=== PATIENT | male | born 1950 | race Caucasian/White ===

== ENCOUNTER 2024-07-22 00:07 | Day surgery (SDC) | payer OTHER, SELFPAY ==
--- NOTE | 2024-07-05 15:22 | PC.NURSE ---
Report to the Outpatient Waiting Room, entrance under the green pavilion located off [facility], at time __9am on date _07/22/24 . Planned Procedure Time: _11 am .? Time changes happen often and if your time is changed the preop area will call you the afternoon before. - You and your visitor will be asked to self-screen and do not enter if you have any COVID symptoms. Please call surgeon if you need to reschedule. - A mask is optional within the hospital at this time. Patients may have clear liquids (water, carbonated beverages, clear teas, apple juice) until 3 hours prior to surgery(8am) with a maximum of 20 ounces. - No food from midnight until time of surgery and no smoking. This includes no chewing gum, candy or mints. - Take only the following medications with a SIP of water on the morning of surgery: _AMLODIPINE,METOPROLOL, DO NOT STOP ANY OF YOUR OTHER PRESCRIPTION MEDICATIONS PRIOR TO SURGERY EXCEPT THE FOLLOWING Medications to discontinue per physician _HOLD _XARELTO 5 DAYS PRE OP PER DR DOE__LAST DOSE 07/16/24 Please no make-up, nail icelandic, hairspray, perfume, deodorant, or body powder the day of surgery.? No jewelry (including any body piercings) or valuables the day of surgery, leave them at home.? Please take a shower or bath the night before, or the morning of, surgery with an antibacterial soap.? Wear comfortable, loose fitting clothing.? Children are encouraged to wear pajamas. - Jewelry must be removed prior to entering the operating room.? Rings and piercings that are not removed may be cut off. - The hospital will not accept responsibility for valuables.? - Please leave all valuables, including medications, at home the day of surgery. If you are going home after surgery, a licensed refuse driver must drive you home.? - NO public transportation without another adult if you receive anesthesia. - We recommend that an adult stay with you for 24 hours following discharge. - We also recommend that you do not drive, make important decision, drink alcoholic beverages, or take any drugs that were not prescribed by your health care provider for at least 24 hours after your discharge time. For Pediatric surgeries, we recommend two adults accompany the child home. F Telephone instructions given to __patient and asked if any additional questions and then verbalized understanding. Patient advised to call surgeon office or pre surgery nurse liaison [phone] if any additional questions.
[2024-07-05 15:50] VITALS: BMI 27.7
--- NOTE | 2024-07-18 07:23 | PM.IMHP ---
H&P: HPI History of Present Illness Date/Time: 07/18/24 07:23 Chief Complaint: Patient is trigger finger left 4th finger. He has catching locking and pain in the A1 brain of the 4th finiger. He has had other trigger fingers released and has done well from those. Review of Systems Musculoskeletal: Musculoskeletal: Reports arthralgias, Reports joint swelling and Reports stiffness PMFSH Past Medical History Medical History History of trigger finger History of esophageal cancer surgery of removal Mild acid reflux Afib Hypertension Surgical History Surgical History History of carpal tunnel surgery of right wrist History of hand surgery trigger finger x2 History of hernia repair History of elbow surgery Social History Social History Smoking packs per day: 0.5 Smoking cigarettes per day: 10.0 Years smoked: 7 Smoking pack-years: 3.50 Smoking status: Former smoker Tobacco type: cigarettes Smoking end date: 07/24/78 Additional smoking assessment comments: quit 40yrs ago Alcohol intake: current Drinks per week: 10 Alcohol use details: BEER Substance use type: does not use Do You Feel Safe in your Home?: Yes Lack of Transportation: No Lack of Food: Never True Current Housing: I Have Housing Concerned About Future Housing: No Difficulty Paying Gas/Electric Bills: No Difficulty Paying for Meds: No Currently Unemployed: No Education: High School Diploma/GED Difficulty w/ Childcare or Family Care: No Living arrangements: with family Occupation/Education: retired Gender identity (if verbalized by the patient): Male Spiritual care concerns: No Meds Home Medications and Allergies Home Medications ?Medication ?Instructions ?Recorded ?Confirmed ?Type amlodipine 5 mg tablet 5 mg PO DAILY 11/21/23 07/05/24 History losartan 100 mg tablet 100 mg PO DAILY 11/21/23 07/05/24 History metoprolol tartrate 25 mg tablet 25 mg PO BID 11/21/23 07/05/24 History pantoprazole 40 mg tablet,delayed 40 mg PO QAM 11/21/23 07/05/24 History release rivaroxaban 20 mg tablet (Xarelto) 20 mg PO DAILY 11/21/23 07/05/24 History rosuvastatin 40 mg tablet 40 mg PO DAILY 11/21/23 07/05/24 History Allergies Allergy/AdvReac Type Severity Reaction Status Date / Time No Known Allergies Allergy Verified 07/05/24 15:26 Exam Narrative: On exam he has got catching was 4th finger on the left. He has pain to palpation manipulation. Neurologically he is grossly intact. There is a palpable bump or mass in the area. Radiology Reports: Comments: Patient: Lance Guillen 07/02/24 07:13 XR hand LT min 3V Routine Interpretation: AP lateral oblique view of the left hand demonstrates mild degenerative change particularly the 1st CMC joint otherwise unremarkable. This report may have been done utilizing a voice recognition system. Attempts have been made to correct errors. However, there may be uncorrected grammatical, spelling, and recognition errors present. Documented By: Jose Sethi MD 07/02/24 1038 Signed By: Hand X-Ray 07/02/24 Orthopedics Result Report 07/02/24 Assessment and Plan Assessment and plan (1) Trigger finger, left ring finger: Code(s): M65.342 - Trigger finger, left ring finger Status: Acute Assessment and Plan: Patient is trigger finger left 4th. He has been unresponsive to conservative treatment. Like to consider surgical release. He has had other trigger fingers released is done well from them. Will proceed per his request. I have discussed risks, benefits, limitations, and alternatives in detail with the patient. He would like to proceed.
--- NOTE | 2024-07-22 07:02 | WPDHPUPDATE1 ---
History and Physical Update Update Date/Time: 07/22/24 07:02 History and Physical has been reviewed, including an updated exam of the patient. There are NO changes in the patient's condition. Risks, benefits, and alternatives have been discussed and questions answered. Patient agrees to proceed with procedure.
--- NOTE | 2024-07-22 07:38 | P.PNAN_ITS ---
Anes - Initial Pre Proc Eval Procedure: Operation Date: 07/22/24 11:00 Proposed Procedures p Left Fourth Trigger Finger Release - Jose Sethi MD Date/Time: 07/22/24 07:38 Surgeon: Jose Sethi MD Pre Op Diagnosis: Left Fourth Trigger Finger Patient Data Age: 74 Gender: M Height: 1.85 m Weight: 95.3 kg Allergies Allergy/AdvReac Type Severity Reaction Status Date / Time No Known Allergies Allergy Verified 07/05/24 15:26 Home Medications ?Medication ?Instructions ?Recorded ?Confirmed ?Type amlodipine 5 mg tablet 5 mg PO DAILY 11/21/23 07/05/24 History losartan 100 mg tablet 100 mg PO DAILY 11/21/23 07/05/24 History metoprolol tartrate 25 mg tablet 25 mg PO BID 11/21/23 07/05/24 History pantoprazole 40 mg tablet,delayed 40 mg PO QAM 11/21/23 07/05/24 History release rivaroxaban 20 mg tablet (Xarelto) 20 mg PO DAILY 11/21/23 07/05/24 History rosuvastatin 40 mg tablet 40 mg PO DAILY 11/21/23 07/05/24 History Patient hx anesthesia problems: none Family hx anesthesia problems: none Results Review: All pre-operative results and documents have been reviewed as part of the pre- operative evaluation. [facility] Past Medical History Medical History (Updated 07/22/24 @ 07:39 by Zay Sutton DO) Hyperlipidemia History of trigger finger History of esophageal cancer surgery of removal Mild acid reflux Afib Hypertension Surgical History Surgical History History of carpal tunnel surgery of right wrist History of hand surgery trigger finger x2 History of hernia repair History of elbow surgery Social History Social History Smoking status: Former smoker Additional smoking assessment comments: quit 40yrs ago Alcohol intake: current Drinks per week: 14 Substance use type: does not use Do You Feel Safe in your Home?: Yes Lack of Transportation: No Lack of Food: Never True Current Housing: I Have Housing Concerned About Future Housing: No Difficulty Paying Gas/Electric Bills: No Difficulty Paying for Meds: No Currently Unemployed: No Education: High School Diploma/GED Difficulty w/ Childcare or Family Care: No Living arrangements: with family Occupation/Education: retired Gender identity (if verbalized by the patient): Male Anes - Eval Final PreProcedure Day of Procedure 07/22/24 07:38 Patient weight: overweight Heart: regular rate and rhythm Lungs: clear to auscultation Airway: Mallampati scale class II Neurological: alert and oriented Last oral intake: >/= 8 hours ASA classification: III Emergent: no Anesthetic plan: proceed Anesthesia type and monitoring: general GIVS and standard monitoring Results Review: All pre-operative results and documents have been reviewed as part of the pre-o perative evaluation. Informed Consent: The patient's anesthetic plan and its attendant risks and benefits were discussed with the patient/family/POA. Questions were solicited and answers provided to the satisfaction of the patient/family/POA.
[2024-07-22] MEDS: LACTATED RINGERS 1,000 ML 30 ML IV CONT (07:45)
[2024-07-22] MEDS: KETOROLAC 15 MG/ML VIAL (*BKC) IV PUSH (07:50)
[2024-07-22] MEDS: ACETAMINOPHEN 500 MG TABLET 1000 MG PO (07:50)
[2024-07-22] MEDS: ceFAZolin 2 GM/D5W 50 ML 2 GM/50 ML BAG IVPB (08:15)
[2024-07-22 08:28] VITALS: BP 131/64; PULSE 55; RESP 16; TEMP 36.2; O2SAT 99
[2024-07-22] MEDS: LIDOCAINE 1% LOCAL INJ 10 ML VIAL INFILTRATE (08:29)
--- NOTE | 2024-07-22 08:35 | W.PM.PROC2 ---
Procedure Note - Detailed Date of Procedure 07/22/24 Pre-op Diagnosis Left Fourth Trigger Finger Post-op Diagnosis Same Procedure Performed Release A1 Brain Surgeon Jose Sethi MD Anesthesia General Indications Pain and Catching Description of Procedure Patient brought to operating room 8. A general anesthetic was administered. He was sterilely prepped and draped in usual manner. Local infiltrate placed along the line of intended incision line with the distal thenar crease. Palmar crease. Dissection carried down through the skin. The neurovascular bundles were protected and dissection continued bluntly to the A1 brain. This was released under direct vision. The tendon had full excursion without catching or locking at this time. The wound irrigated, hemostasis obtained, and closed with 3-0 Prolene. Sterile dressing applied. Patient left the operating room satisfactory condition Estimated Blood Loss 1 Complications No immediate complications Condition Stable Disposition PACU [facility] Billing Surgery - Charge Forward: Surgery Billing ([id number] Trigger Finger Release)
[2024-07-22 08:44] VITALS: BP 96/52; PULSE 61; RESP 16; O2SAT 99
[2024-07-22 09:00] VITALS: BP 115/60; PULSE 68
[2024-07-22 09:15] VITALS: BP 105/50; PULSE 59; RESP 16
[2024-07-22 09:45] VITALS: BP 105/59; PULSE 59; RESP 15
== END 2024-07-22 10:09 | disposition home or self-care (01) ==
PROVIDERS: PCP Family Medicine; Visit Provider Orthopaedic Surgery
PROC: (CPT 26055; principal; 2024-07-22 11:00)
DX: M65.342 Trigger finger, left ring finger (principal); I10 Essential (primary) hypertension; K21.9 Gastro-esophageal reflux disease without esophagitis; I48.91 Unspecified atrial fibrillation; Z79.01 Long term (current) use of anticoagulants; Z98.890 Other specified postprocedural states; Z87.891 Personal history of nicotine dependence; Z85.01 Personal history of malignant neoplasm of esophagus
CPT/HCPCS: 26055; A9270; J0690; J1596; J1885; J2003; J3010; J7120